=== PATIENT | male | born 2000 | race American Indian/Alaskan Native ===

== ENCOUNTER 2019-02-22 00:34 | Emergency (ER) | payer SELFPAY ==
[2019-02-22 00:51] VITALS: BP 136/99
[2019-02-22] MEDS ORDERED: NORCO 5/325 PO STA (02:32)
--- NOTE | 2019-02-22 02:48 | Emergency Department Report ---
ED ENT HPI - General Chief complaint: Dental/Oral Stated complaint: SWOLLEN JAW AND ACHING TEETH Time Seen by Provider: 02/22/19 02:32 Source: patient Mode of arrival: Ambulatory Limitations: No Limitations - History of Present Illness Initial comments: 18-year-old -[place] male to emergency department complaining of 2 month history of episodic waxing and waning left-sided dental pain that has been progressively worsening over the past 1 week. Over the past 1 week. He's noticed some worsening pain episodes and now some swelling over the past couple days. Pain is dull, throbbing, worse with chewing and palpation reports no fever, chills, sweats. No odynophagia. Normal voice. MD complaint: tooth pain Location: tooth # Severity: mild, moderate Quality: dull Consistency: constant Associated Symptoms: toothache. denies: sore throat, discharge from ear, rhinorrhea - Related Data Previous Rx's Medication Instructions Recorded Last Taken Type Amoxicillin [Amoxicillin TAB] 875 mg PO BID #20 tablet 02/22/19 Unknown Rx Chlorhexidine Mouthwash [Peridex] 15 ml MM BID #473 bottle 02/22/19 Unknown Rx Ketorolac [Toradol] 10 mg PO Q6H PRN #15 tablet 02/22/19 Unknown Rx Lidocaine Viscous 2% 5 ml MM Q3H PRN #120 udc 02/22/19 Unknown Rx Allergies Allergy/AdvReac Type Severity Reaction Status Date / Time No Known Allergies Allergy Unverified 02/22/19 00:45 ED Dental HPI - General Chief complaint: Dental/Oral Stated complaint: SWOLLEN JAW AND ACHING TEETH Time Seen by Provider: 02/22/19 02:32 Source: patient Mode of arrival: Ambulatory Limitations: No Limitations - Related Data Previous Rx's Medication Instructions Recorded Last Taken Type Amoxicillin [Amoxicillin TAB] 875 mg PO BID #20 tablet 02/22/19 Unknown Rx Chlorhexidine Mouthwash [Peridex] 15 ml MM BID #473 bottle 02/22/19 Unknown Rx Ketorolac [Toradol] 10 mg PO Q6H PRN #15 tablet 02/22/19 Unknown Rx Lidocaine Viscous 2% 5 ml MM Q3H PRN #120 udc 02/22/19 Unknown Rx Allergies Allergy/AdvReac Type Severity Reaction Status Date / Time No Known Allergies Allergy Unverified 02/22/19 00:45 ED Review of Systems ROS: Stated complaint: SWOLLEN JAW AND ACHING TEETH Other details as noted in HPI Comment: All other systems reviewed and negative ED Past Medical Hx - Past Medical History Previous Medical History?: Yes Additional medical history: Seasonal allergies - Surgical History Past Surgical History?: Yes Additional Surgical History: Tonsils and Adnoids removed - Social History Smoking Status: Current Every Day Smoker - Medications Home Medications: Home Medications Medication Instructions Recorded Confirmed Last Taken Type Amoxicillin [Amoxicillin TAB] 875 mg PO BID #20 tablet 02/22/19 Unknown Rx Chlorhexidine Mouthwash [Peridex] 15 ml MM BID #473 bottle 02/22/19 Unknown Rx Ketorolac [Toradol] 10 mg PO Q6H PRN #15 tablet 02/22/19 Unknown Rx Lidocaine Viscous 2% 5 ml MM Q3H PRN #120 udc 02/22/19 Unknown Rx ED Physical Exam - General Limitations: No Limitations General appearance: alert, in no apparent distress - Head Head exam: Present: atraumatic, normocephalic - Eye Eye exam: Present: normal appearance, PERRL, EOMI Pupils: Present: normal accommodation - ENT ENT exam: Present: normal exam, mucous membranes moist, other (swelling adjacent to the left lower mandible tenderness symptoms. Adjacent gingival tongue and uvula are midline and without edema) - Neck Neck exam: Present: normal inspection - Respiratory Respiratory exam: Present: normal lung sounds bilaterally. Absent: respiratory distress, wheezes, rales - Cardiovascular Cardiovascular Exam: Present: regular rate, normal rhythm. Absent: systolic murmur, diastolic murmur, rubs, gallop - GI/Abdominal GI/Abdominal exam: Present: soft, normal bowel sounds. Absent: hyperactive bowel sounds, organomegaly, mass - Rectal Rectal exam: Present: deferred - Extremities Exam Extremities exam: Present: normal inspection, full ROM, normal capillary refill - Back Exam Back exam: Present: normal inspection, full ROM - Neurological Exam Neurological exam: Present: alert, oriented X3 - Psychiatric Psychiatric exam: Present: normal affect, normal mood. Absent: agitated, manic, homicidal ideation - Skin Skin exam: Present: warm, dry, intact, normal color. Absent: rash ED Course Vital Signs 02/22/19 00:47 Temperature 98.8 F Pulse Rate 71 Respiratory 20 Rate Blood Pressure 136/99 O2 Sat by Pulse 100 Oximetry Critical care attestation.: If time is entered above; I have spent that time in minutes in the direct care of this critically ill patient, excluding procedure time. ED Disposition Clinical Impression: Dentalgia, Dental infection Disposition: TO HOME OR SELFCARE Is pt being admited?: No Does the pt Need Aspirin: No Condition: Stable Instructions: Toothache (ED), Dental Caries (ED), Dental Abscess (ED) Prescriptions: Amoxicillin [Amoxicillin TAB] 875 mg PO BID #20 tablet Lidocaine Viscous 2% 5 ml MM Q3H PRN #120 udc PRN Reason: Pain, Moderate (4-6) Chlorhexidine Mouthwash [Peridex] 15 ml MM BID #473 bottle Ketorolac [Toradol] 10 mg PO Q6H PRN #15 tablet PRN Reason: Pain Referrals: INA ZAMORA MD [Primary Care Provider] - 3-5 Days
== END 2019-02-22 03:11 | disposition home or self-care (01) ==
LOC: ED 00:34
DX: K04.7 Periapical abscess without sinus (principal); J30.2 Other seasonal allergic rhinitis; F17.200 Nicotine dependence, unspecified, uncomplicated; Z90.89 Acquired absence of other organs; Z79.899 Other long term (current) drug therapy

== ENCOUNTER 2020-11-21 11:10 | Emergency (ER) | payer SELFPAY ==
[2020-11-21] MEDS ORDERED: SODIUM BICARB 8.4% 50 MEQ/50 ML SYRINGE IV ONE (11:18)
[2020-11-21] MEDS ORDERED: EPINEPHrine 1 MG/10 ML SYRINGE ONE (11:18)
[2020-11-21] MEDS ORDERED: DEXTROSE 50% IN WATER (25GM) 50 ML SYRINGE IV ONE (11:18)
--- NOTE | 2020-11-21 11:27 | Emergency Department Report ---
ED CPR HPI - General Stated Complaint: CARDIAC ARREST Time Seen by Provider: 11/21/20 11:23 - History of Present Illness Initial Comments: Patient is a 20-year-old F Spanish male with unknown past medical history except for asthma which was relayed to us by paramedics who transported the patient she to the emergency department because of cardiac arrest. Patient apparently had been drinking alcohol last night. His last known well time was approximately midnight. Is unknown what time the patient actually fell asleep. In the event his mother found him this morning prior to his arrival on the couch apparently sleeping. When she rolled him over and tried to wake him up there was a large amount of vomit in his mouth and he was unresponsive. Paramedics were called. The lead paramedics stated that they suction approximately 250 cc of vomit from the mouth. They were able to intubate with endotracheal tube. ACLS protocols were initiated. Patient was given 3 rounds of epinephrine and sodium bicarb prior to arrival. MD Complaint: found unresponsive - Related Data Previous Rx's Medication Instructions Recorded Last Taken Type Amoxicillin [Amoxicillin TAB] 875 mg PO BID #20 tablet 02/22/19 Unknown Rx Chlorhexidine Mouthwash [Peridex] 15 ml MM BID #473 bottle 02/22/19 Unknown Rx Ketorolac [Toradol] 10 mg PO Q6H PRN #15 tablet 02/22/19 Unknown Rx Lidocaine Viscous 2% 5 ml MM Q3H PRN #120 udc 02/22/19 Unknown Rx Allergies Allergy/AdvReac Type Severity Reaction Status Date / Time No Known Allergies Allergy Unverified 02/22/19 00:45 ED Review of Systems ROS: Stated complaint: CARDIAC ARREST Other details as noted in HPI Comment: Unobtainable due to pts medical conditions ED Past Medical Hx - Medications Home Medications: Home Medications Medication Instructions Recorded Confirmed Last Taken Type Amoxicillin [Amoxicillin TAB] 875 mg PO BID #20 tablet 02/22/19 Unknown Rx Chlorhexidine Mouthwash [Peridex] 15 ml MM BID #473 bottle 02/22/19 Unknown Rx Ketorolac [Toradol] 10 mg PO Q6H PRN #15 tablet 02/22/19 Unknown Rx Lidocaine Viscous 2% 5 ml MM Q3H PRN #120 udc 02/22/19 Unknown Rx ED Physical Exam - General General appearance: obtunded - Head Head exam: Present: atraumatic - Eye Pupils: Present: other (Pupils are fixed and dilated) - ENT ENT exam: Present: mucous membranes moist - Respiratory Respiratory exam: Present: other (Lungs are clear with bagging. No spontaneous breath sounds) - Cardiovascular Cardiovascular Exam: Present: other (No spontaneous heart tones. Unable to palpate pulse at the carotid or femoral unless compressions were being done.) - GI/Abdominal GI/Abdominal exam: Present: soft. Absent: distended - Skin Skin exam: Present: warm, dry, intact, normal color ED Course - Reevaluation(s) Reevaluation #1: 11/21/20 11:29 Lungs appeared clear with bagging. ACLS protocols were continued on the patient's arrival. Patient given additional 4 rounds of epinephrine sodium bicarb. Glucose was 40 he was given an amp of D50. Despite these efforts the patient did not regain spontaneous circulation. Patient pronounced at 1118. ED Medical Decision Making - Medical Decision Making Patient is a 20-year-old F Spanish male who presented cardiac arrest. ACLS was stopped at 1118. Spoke with mother to give the news that her son had . She did not give any additional history other than what was presented by paramedics. She states she did fine him with vomit in his mouth unconscious. CPR was initiated by family prior to paramedics arrival. Critical care attestation.: If time is entered above; I have spent that time in minutes in the direct care of this critically ill patient, excluding procedure time. ED Disposition Clinical Impression: Cardiopulmonary arrest Disposition: DC-20 Is pt being admited?: No Does the pt Need Aspirin: No Condition: Stable Time of Disposition: :18
== END 2020-11-21 12:00 ==
LOC: EDUNIT# → ED 11:10
DX: I46.9 Cardiac arrest, cause unspecified (principal); Z79.899 Other long term (current) drug therapy
CPT/HCPCS: 82962; 92950; 99285; J0171